=== PATIENT | female | born 1960 | race Two or more races ===

== ENCOUNTER 2020-04-23 05:45 | Day surgery (SDC) | payer OTHER | END 2020-04-23 12:30 | disposition home or self-care (01) | LOC: AMB-ENDOS 05:45 | PROVIDERS: ATTEND Surgery | DX: D12.0 Benign neoplasm of cecum (principal); D12.4 Benign neoplasm of descending colon; D12.5 Benign neoplasm of sigmoid colon; Z20.828 Contact with and (suspected) exposure to other viral communicable diseases; Z12.11 Encounter for screening for malignant neoplasm of colon ==

== ENCOUNTER 2022-07-22 06:21 | Day surgery (SDC) | payer OTHER | END 2022-07-22 15:35 | disposition home or self-care (01) | LOC: AMB-ENDOS 06:21 → CIR.AMB 14:00 → AMB-ENDOS 15:35 | PROVIDERS: ATTEND Surgery | DX: K59.00 Constipation, unspecified (principal); R10.9 Unspecified abdominal pain; R19.4 Change in bowel habit; K57.30 Diverticulosis of large intestine without perforation or abscess without bleeding; Z86.010 Personal history of colon polyps; K64.8 Other hemorrhoids; Z20.822 Contact with and (suspected) exposure to COVID-19 ==